=== PATIENT | male | born 1980 | race Caucasian/White ===

== ENCOUNTER 2016-10-13 22:49 | Emergency (ER) | payer BC ==
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
== END 2016-10-13 23:39 | disposition disaster alternative care site (69) ==
LOC: GACC 22:49
DX: T26.12XA Burn of cornea and conjunctival sac, left eye, initial encounter (principal); W39.XXXA Discharge of firework, initial encounter; Y93.89 Activity, other specified